=== PATIENT | female | born 1955 | race Caucasian/White ===

== ENCOUNTER → 2017-09-28 | Outpatient (CLI) | payer BC ==
[~2017-09-28] MED LIST: ALBU8.5H IH; ATOR10TA65 PO; AZIT-1 PO; CHOL10005 PO; ESOM40CA42 PO; EST3 PO; FLU60SYR30 IM ONLY; LOR5/325 PO; NADO20TA12 PO; NADOLOL; NEXIUM; PREMARIN; ROBC PO; ROS10 PO; SERT-184 PO; SIMV-49 PO; TRIA-19 PO; TRIAMTERENE
--- NOTE | 2017-09-28 17:18 | RADIOLOGY IMAGING REPORT ---
FACILITY: [facility] PATIENT NAME: DAYAMI BAHENA : [id number] MR: [id number] V: [id number] EXAM DATE: [id number] ORDERING PHYSICIAN: RUDOLPH LANGE TECHNOLOGIST: Melonie Fountain PROCEDURE:BILATERAL DIGITAL SCREENING MAMMOGRAM WITH CAD ASSISTED INTERPRETATION & 3D TOMOSYNTHESIS COMPARISON:Prior mammograms 09/23/16, 09/11/15, 09/08/14, 09/07/13, 08/30/12, 08/08/11 INDICATIONS:screening FINDINGS: Moderately heterogeneous fibroglandular tissue is seen throughout the breasts. The parenchymal pattern has remained stable allowing for difference in mammographic technique & patient positioning. There is no evidence of malignant appearing mass, malignant appearing calcifications or other secondary sign of malignancy in either breast. DIAGNOSTIC CATEGORY 2--BENIGN FINDING. RECOMMENDATIONS: ROUTINE MAMMOGRAM AND CLINICAL EVALUATION. IMPRESSION: BIRADS 2: Benign finding No significant abnormality is seen Dictated by: Olimpia Craft M.D. on 09/28/2017 at 15:47 Transcribed by: ANIYAH on 09/28/2017 at 15:55 Approved by: Olimpia rCaft M.D. on 09/28/2017 at 17:17 [facility]
== END ==
LOC: MAMO 00:54
PROVIDERS: ATTEND Internal Medicine
DX: Z12.31 Encounter for screening mammogram for malignant neoplasm of breast (principal)
CPT/HCPCS: 77063; 77067

== ENCOUNTER → 2018-10-07 | Outpatient (CLI) | payer BC ==
[~2018-10-07] MED LIST changes: +FLU60VIA41 IM; -ROS10 PO; +ROSU10TA PO
--- NOTE | 2018-10-07 14:19 | RADIOLOGY IMAGING REPORT ---
FACILITY: [facility] PATIENT NAME: Jacquie Myers : 1955 MR: [id number] V: [id number] EXAM DATE: ORDERING PHYSICIAN: RUDOLPH LANGE TECHNOLOGIST: Location: [facility] Patient: Jacquie Myers : 1955 Visit/Account:[id number] Date of Sevice: 10/07/2018 DEXA Scan Clinical history: Screening. Comparison: 10/04/2007. LUMBAR SPINE: The bone mineral density (BMD) measured from L1-L4 correlates with a Z-score of 1.8 and a T-score of 0.6 which is within normal range as defined by the World Health Organization. The corresponding risk of fracture in the lumbar spine is not increased compared with a young adult r eference population. This value has decreased by 3.9 % since the prior study. More than 5% change i s considered significant. HIP: Bone mineral density (BMD) measured in the Left Total Hip region correlates with a Z-score of 0.0 and a T-score of -1.0. The T-score of the femoral neck is -1.0. The lower of the two T-scores is lower normal range, borderline osteopenic as defined by the World Health Organization. The corresponding risk of fracture in the hip is double compared wit h a young adult reference population. This value has decreased by four % since the prior study. Mor e than 5% change is considered significant. Bone mineral density (BMD) measured in the Left Femoral Neck region measures 0.901 g/cm?. IMPRESSION: 1. Lumbar spine: Within normal range. There has been no significant change in the bone mineral den sity since the previous exam. 2. Left Total Hip: Lower normal range-borderline osteopenic. There has been no significant change i n the bone mineral density since the previous exam. The next DEXA scan of this patient should include the following sites: L1-L4 and Left hip. FRAX? WHO Fracture Risk Assessment Tool link: <http://www.shef.ac.uk/FRAX/tool.jsp?locationValue=9> PLEASE NOTE: 1) The World Health Organization defines low BMD as follows: T-score Normal > -1 Osteopenia < -1 and > -2.5 Osteoporosis < -2.5 without fractures Established osteoporosis < -2.5 with fractures 2) In general, you may wish to consider: Diagnosis Treatment Follow-up DEXA Normal BMD Prevention 2-3 years Osteopenia Prevention/therapy 1-2 years Osteoporosis Therapy Yearly 3) Fracture risk estimated from the T-score is more accurate for vertebral fractures (often spontane ous) than for hip fractures. Report Dictated By: Cedrick Cook MD at 10/07/2018 2:12 PM Report E-Signed By: Cedrick Cook MD at 10/07/2018 2:14 PM WSN:[id number]
--- NOTE | 2018-10-07 15:25 | RADIOLOGY IMAGING REPORT ---
FACILITY: [facility] PATIENT NAME: DAYAMI BAHENA : [id number] MR: [id number] V: [id number] EXAM DATE: ORDERING PHYSICIAN: RUDOLPH LANGE TECHNOLOGIST: Melonie Fountain PROCEDURE:BILATERAL DIGITAL SCREENING MAMMOGRAM WITH CAD ASSISTED INTERPRETATION & 3D TOMOSYNTHESIS COMPARISON:Prior mammograms 09/08/17, 09/23/16, 09/11/15, 09/08/14, 09/07/13, 08/30/12. INDICATIONS:screening FINDINGS: The breasts are heterogeneously dense which can obscure small masses. The parenchymal pattern has remained stable allowing for difference in mammographic technique & patient positioning. DIAGNOSTIC CATEGORY 1--NEGATIVE. RECOMMENDATIONS: ROUTINE MAMMOGRAM AND CLINICAL EVALUATION. IMPRESSION: BIRADS 1: Negative. No significant abnormality is seen. Dictated by: Olimpia Craft M.D. on 10/07/2018 at 14:41 Transcribed by: ANIYAH on 10/07/2018 at 14:52 Approved by: Olimpia Craft M.D. on 10/07/2018 at 15:24 [facility]
== END ==
LOC: MAMO 00:31
PROVIDERS: ATTEND Internal Medicine
DX: Z13.820 Encounter for screening for osteoporosis (principal); Z12.31 Encounter for screening mammogram for malignant neoplasm of breast; Z78.0 Asymptomatic menopausal state
CPT/HCPCS: 77063; 77067; 77080